=== PATIENT | male | born 1945 | race Caucasian/White ===

== ENCOUNTER 2022-03-21 12:25 | Emergency (ER) | payer MEDICARE, OTHER, SELFPAY ==
[2022-03-21 12:59] VITALS: BP 163/92; PULSE 72; RESP 16; TEMP 36.7; O2SAT 96
[2022-03-21 13:14] VITALS: BP 163/92; PULSE 72; RESP 16; TEMP 36.7; O2SAT 96
--- NOTE | 2022-03-21 13:19 | XR_ITS ---
WS: [id number] Left elbow, 3 views, 03/21/2022 Clinical Data: swelling and mild pain Comparison: None. Findings: No fractures or dislocations are seen. The radial head is normal. The soft tissues are unremarkable. There is a 0.3 cm radiopaque foreign body in the lateral subcutaneous tissue. XR/XR elbow LT min 3V* [id number] Impression: Negative left elbow.
--- NOTE | 2022-03-21 13:19 | USCV_ITS ---
Jameson Ken Age: 76 Gender: M : 1945 Exam Date: 03/21/2022 14:18 Ordering Phys: Elan Wayne Technologist: AMADA Exam Location: [facility] – [place]_ Indication: LUE SWELLING HISTORY: Upper extremity swelling. PROCEDURES: Venous duplex imaging was performed in only the left upper extremity. The following venous structures were evaluated: internal jugular vein, subclavian vein, axillary vein, and brachial veins. In addition, the basilic vein, cephalic vein, radial vein, and ulnar vein. Serial compression, augmentation maneuvers, and spectral Doppler flow evaluation were performed. FINDINGS: The veins of the left upper extremity are readily compressible with normal venous flow dynamics including spontaneous flow, respiratory phasic variation and augmentation. No evidence of deep vein thrombosis or superficial thrombophlebitis in the left upper extremity. CONCLUSIONS No left upper extremity DVT. Dr. Debra Bob DO (Electronically Signed) Final Date: 21 March 2022 14:55 S
--- NOTE | 2022-03-21 13:21 | ED_ITS ---
HPI - Extremity Problem General: Chief complaint: Extremity Problem,Nontraumatic Stated complaint: Elbow injury/wound Time Seen by Provider: 03/21/22 13:09 History of Present Illness: Patient is a 76-year-old male comes to the ED with left arm swelling and pain. Patient says symptoms started yesterday after he was cutting down some brush and trees on his property. He denies any known injury, sting or bite on left arm. After he finished trimming brush is when he noticed an erythemic and pruritic rash around left elbow with swelling. Swelling and rash is gotten worse today. Endorses having mild fever and chills as well. Denies any trouble breathing, throat tightening, lip or tongue swelling, shortness of breath, nausea or vomiting. Patient is not up-to-date on tetanus. Associated symptoms: Reports rash (Erythemic, warm and pruritic rash over left elbow); Deny chest pain or fever(s) Review of Systems Const: Denies: fever(s), chills or fatigue Eyes: Denies: change in vision or eye discomfort ENMT: Denies: throat pain, odynophagia, nasal discharge or nasal congestion Card: Denies: chest pain, palpitations, edema, swelling of feet/ankles, dyspnea on exertion or orthopnea Resp: Denies: dyspnea, productive cough or non-productive cough GI: Denies: abdominal pain, nausea, vomiting, diarrhea, constipation or hematochezia : Denies: flank pain, difficulty urinating, dysuria or hematuria Musc: Reports: extremity pain (Mild pain left elbow); Denies: neck pain, back pain or extremity swelling Skin/Breast: Reports: rash (Erythemic, warm and pruritic rash over left elbow); Denies: new lesions Neuro: Denies: headache(s), numbness in extremities or weakness in extremities PFS ED PFSH: Medical History No pertinent family history Surgical History No pertinent past surgical history Physical Exam Const: COMMON NORMALS: patient oriented x3 and alert GENERAL APPEARANCE: cooperative and comfortable HENMT: COMMON NORMALS: normocephalic HEAD & SCALP: normocephalic MOUTH: Normal oral and palatal mucosa present THROAT: posterior oropharynx normal and uvula midline Neck/C-Spine: COMMON NORMALS: supple GENERAL: Yes normal visual inspection Resp: COMMON NORMALS: normal respiratory effort, No retractions, No use of accessory muscles and clear to auscultation bilaterally AUSCULTATION: clear to auscultation bilaterally Cardio: COMMON NORMALS: regular rate, regular rhythm, S1 normal heart sound present, S2 normal heart sound present, No gallops present (Cardio), No clicks present (Cardio), No murmurs present (Cardio) and Peripheral pulses 2+ throughout RATE: regular rate RHYTHM: regular rhythm HEART SOUNDS: S1 normal heart sound present and S2 normal heart sound present PERIPHERAL PULSES: Peripheral pulses 2+ throughout GI: COMMON NORMALS: Normal to inspection, nondistended, normoactive bowel so unds present, Soft to palpation, non-tender and no masses PALPATION: Yes Soft to palpation : COMMON NORMALS: Yes no CVA tenderness BLADDER/KIDNEY EXAM: Yes no CVA tenderness Back/Pelvis: COMMON NORMALS: no CVA tenderness Extremity: NARRATIVE EXTREMITY EXAM: Left elbow?patient has superficial abrasion noted on posterior aspect of elbow. Significant warmth erythema and edema noted. 1+ pitting edema around elbow. Findings suggestive of cellulitis. Full range of motion in elbow and no concern for any septic joint. Neuro: COMMON NORMALS: patient oriented x3 SENSORIUM/ORIENTATION: Yes alert GAIT: Yes Normal gait present Skin: GENERAL SKIN EXAM: dry skin Course Vital Signs: Vital signs: Vital Signs Temperature 98.1 F 03/21/22 13:14 Pulse Rate 72 03/21/22 13:14 Respiratory Rate 16 03/21/22 13:14 Blood Pressure 163/92 03/21/22 13:14 Pulse Oximetry 96 03/21/22 13:14 Oxygen Delivery Me thod 03/21/22 13:14 MDM - Extremity (Nontraumatic) Medical Decision Making Patient is a 76-year-old male comes to the ED with left arm swelling and pain. Patient says symptoms started yesterday after he was cutting down some brush and trees on his property. He denies any known injury, sting or bite on left arm. Vitals are stable. exam findings suggestive more like cellulitis then allergic reaction. X-ray of elbow showed no acute findings. Ultrasound venous duplex of left upper extremity showed no DVT or blood clots seen. Patient was given updated tetanus here in the ED. He was given a dose of Rocephin and Solu-Medrol while here in the ED as well. He was diagnosed with cellulitis and discharged home with a prescription for cephalexin and steroid. Return ED precautions given. Follow-up with PCP in the next week for reevaluation. Patient understood and agreed with plan. Lab Data Radiology Impressions Elbow X-Ray 03/21/22 13:19 Impression: Negative left elbow. Discharge Plan Discharge Patient Disposition: Home Clinical Impression: Cellulitis Qualifiers: Site of cellulitis: extremity Site of cellulitis of extremity: upper extremity Laterality: left Qualified Code(s): L03.114 - Cellulitis of left upper limb Condition: Stable Prescriptions: New cephalexin 500 mg capsule 500 mg PO Q6H 7 Days Qty: 28 0RF prednisone 20 mg tablet 20 mg PO BID 3 Days Qty: 6 0RF Discharge Orders: Discharge ED (Routine); Ordered 03/21/22 Ordered By: Elan Wayne Referrals: Elan Contreras MD [Primary Care Provider] - Discharge Diet: Regular Discharge Activity: Increase activity as tolerated Patient Instructions: Cellulitis (ED) Activity Restrictions/Additional Instructions: Follow-up with medical provider as directed in the next 5 to 7 days reevaluation. Take medications as prescribed. You can start taking the prescribed prednisone and antibiotic cephalexin tomorrow since she received doses here in the ED for today. Return to the ER or your medical provider if condition worsens. Please read and understand discharge instructions. Thank you for choosing [facility] for your healthcare needs today. Please realize this is an emergency room and that we are providing you with a medical screening exam and this may not be complete and all inclusive of all the testing and or work up that you may need to determine your ailment or severity of your illness. It is very important that you follow up as instructed or that you return to the Emergency Department should you have concerns or if your condition changes or worsens in any way. Coding Level of Care Code ED [facility] for Lolis Serrato Exam Comprehensive
[2022-03-21] MEDS: tetanus-dipt-pertussis 0.5 mL SDV IM (13:41)
[2022-03-21] MEDS: cefTRIAXone 1,000 MG in lidocaine 1% 2.1 ML 1 MG IM (13:47)
== END 2022-03-21 14:43 | disposition home or self-care (01) ==
PROVIDERS: Emergency Provider Physician Assistant; PCP Internal Medicine Cardiovascular Disease
DX: L03.114 Cellulitis of left upper limb (principal); Z23 Encounter for immunization
CPT/HCPCS: 73080; 90471; 90715; 93971; 96372; 99284; J0696; J2930

== ENCOUNTER → 2025-01-11 09:06 | Outpatient (BNVA) | payer MEDICARE, OTHER, SELFPAY | PROVIDERS: PCP Internal Medicine Cardiovascular Disease; Visit Provider Student in an Organized Health Care Education/Training Program | DX: M25.551 Pain in right hip (principal); M54.50 Low back pain, unspecified | CPT/HCPCS: 73502; 99203 ==

== ENCOUNTER 2025-01-15 05:00 | Outpatient (RCR) | payer MEDICARE, OTHER, SELFPAY | END 2025-02-13 23:55 | disposition home or self-care (01) | LOC: MPT 05:00 | PROVIDERS: Visit Provider Orthopaedic Surgery | DX: M54.50 Low back pain, unspecified (principal) | CPT/HCPCS: 97110; 97162 ==

== ENCOUNTER → 2025-01-24 15:19 | Outpatient (BNVA) | payer MEDICARE, OTHER, SELFPAY | PROVIDERS: PCP Internal Medicine Cardiovascular Disease; Visit Provider Orthopaedic Surgery | DX: M54.50 Low back pain, unspecified (principal) | CPT/HCPCS: 72110; 99203 ==

== ENCOUNTER 2025-01-26 08:05 | Outpatient (CLI) | payer MEDICARE, OTHER, SELFPAY ==
--- NOTE | 2025-01-26 08:00 | MR_ITS ---
WS: [id number] MRI LUMBAR SPINE NONCONTRAST TECHNIQUE: Sagittal T1, T2 and STIR imaging. Axial T1 and T2 imaging. CLINICAL INFORMATION: low back pain COMPARISON: None. FINDINGS: Some images degraded by motion. Patient unable to finish the axial PD sequence due to pain. Mild lumbar curve. No acute compression. Schmorl's nodes in the lower thoracic and lumbar spine. Grade 1 anterolisthesis L4 on L5 and L5 on S1. Chronic spondylolysis L5-S1. L1-L2: Mild annular bulging. Mild facet arthropathy. Mild bilateral foraminal narrowing. Narrowing of the subarticular recess. L2-L3: Mild disc bulging with narrowing of the subarticular recess bilaterally. Moderate facet arthropathy. Bilateral foraminal protrusions with moderate RIGHT greater than LEFT foraminal narrowing. L3-L4: Mild annular bulging. Narrowing of the subarticular recess. Moderate facet arthropathy. Bilateral foraminal protrusions with moderate bilateral foraminal narrowing. L4-L5: Grade 1 anterolisthesis. Unroofing of the L4-5 disc with severe central canal stenosis. Advanced facet arthropathy. LEFT to RIGHT narrowing of the thecal sac. Bilateral facet effusions. Severe RIGHT and moderate LEFT foraminal narrowing. L5-S1: Grade 1 anterolisthesis with chronic spondylolysis. Spinal canal is patent. Severe bilateral foraminal narrowing. Visualized pelvic bony structures: Normal. Paravertebral soft tissues: Normal. Partially visualized RIGHT renal cyst. Partially visualized suspected abdominal aortic aneurysm measuring approximately 4 cm. Recommend further evaluation with CTA abdomen pelvis. Images in this area degraded due to motion. Heterogeneous bone marrow signal compatible with osteoporosis. MR/MR lumbar spine wo con* [id number] IMPRESSION: 1. Grade 1 anterolisthesis L4 on L5 with severe central canal stenosis and sev ere RIGHT and moderate LEFT foraminal narrowing 2. 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 Severe bilater al foraminal narrowing. 3. Bilateral foraminal protrusions L2-3 and L3-4 with moderate bilateral pierre inal narrowing at these levels. 4. Advanced facet arthropathy L4-L5 and L5-S1. Small facet effusions at L4-5. 5. Heterogeneous bone marrow signal compatible with osteoporosis. 6. Partially visualized abdominal aortic aneurysm measuring up to 4.0 cm. Aidan mmend further evaluation with CTA.
== END 2025-01-26 08:06 | disposition home or self-care (01) ==
PROVIDERS: PCP Internal Medicine Cardiovascular Disease; Visit Provider Orthopaedic Surgery
DX: M48.061 Spinal stenosis, lumbar region without neurogenic claudication (principal); M43.16 Spondylolisthesis, lumbar region; M43.17 Spondylolisthesis, lumbosacral region; M48.07 Spinal stenosis, lumbosacral region; M51.26 Other intervertebral disc displacement, lumbar region; M47.896 Other spondylosis, lumbar region; M47.897 Other spondylosis, lumbosacral region; M25.48 Effusion, other site; R93.7 Abnormal findings on diagnostic imaging of other parts of musculoskeletal system; M43.8X6 Other specified deforming dorsopathies, lumbar region; M51.46 Schmorl's nodes, lumbar region; M51.44 Schmorl's nodes, thoracic region; M51.369 Other intervertebral disc degeneration, lumbar region without mention of lumbar back pain or lower extremity pain; N28.1 Cyst of kidney, acquired; R93.89 Abnormal findings on diagnostic imaging of other specified body structures
CPT/HCPCS: 72148

== ENCOUNTER 2025-02-14 06:30 | Outpatient (RCR) | payer MEDICARE, OTHER, SELFPAY | END 2025-03-16 23:59 | disposition home or self-care (01) | LOC: MPT 06:30 | PROVIDERS: Visit Provider Orthopaedic Surgery | DX: M54.50 Low back pain, unspecified (principal) | CPT/HCPCS: 97110; 97140; G0283 ==

== ENCOUNTER 2025-03-17 05:00 | Outpatient (RCR) | payer MEDICARE, OTHER, SELFPAY | END 2025-04-16 23:59 | disposition home or self-care (01) | LOC: MPT 05:00 | PROVIDERS: Visit Provider Orthopaedic Surgery | DX: M54.50 Low back pain, unspecified (principal) | CPT/HCPCS: 97110; 97140; G0283 ==

== ENCOUNTER 2025-04-17 05:00 | Outpatient (RCR) | payer MEDICARE, OTHER, SELFPAY | END 2025-05-08 10:09 | disposition home or self-care (01) | LOC: MPT 05:00 | PROVIDERS: Visit Provider Orthopaedic Surgery | DX: M54.50 Low back pain, unspecified (principal) | CPT/HCPCS: 97110; 97140; G0283 ==